=== PATIENT | female | born 2000 | race Two or more races ===

== ENCOUNTER 2023-06-27 15:41 | Emergency (ER) | payer MEDICAID ==
[~2023-06-27] VITALS: Ht 154.9 cm; Wt 63.4 kg
[2023-06-27 19:03] VITALS: BP 118/59; PULSE 91; RESP 18; TEMP 98.3; O2SAT 98
[2023-06-27] MEDS ORDERED: ACET500T58 PO (20:35)
== END 2023-06-27 21:03 | disposition home or self-care (01) ==
LOC: ER 15:41
DX: S16.1XXA Strain of muscle, fascia and tendon at neck level, initial encounter (principal); R51.9 Headache, unspecified; V43.52XA Car driver injured in collision with other type car in traffic accident, initial encounter; Y93.89 Activity, other specified; Y92.488 Other paved roadways as the place of occurrence of the external cause; Y99.8 Other external cause status

== ENCOUNTER 2025-04-21 18:44 | Emergency (ER) | payer MEDICAID ==
[~2025-04-21] VITALS: Ht 154.9 cm; Wt 63.9 kg
[~2025-04-21 18:44] MED LIST: ACET500T58 PO
[2025-04-21 18:46] VITALS: BP 135/85; PULSE 65; RESP 18; TEMP 97.9; O2SAT 98
== END 2025-04-21 19:51 | disposition left against medical advice (07) ==
LOC: ER 18:44
DX: T19.2XXA Foreign body in vulva and vagina, initial encounter (principal); W44.9XXA Unspecified foreign body entering into or through a natural orifice, initial encounter; Y93.89 Activity, other specified; Y92.89 Other specified places as the place of occurrence of the external cause; Y99.8 Other external cause status